=== PATIENT | female | born 1935 | race Caucasian/White ===

== ENCOUNTER 2018-10-18 11:14 | Emergency (ER) | payer MEDICARE, OTHER ==
[2018-10-18] MEDS ORDERED: SODIUM CHLORIDE 0.9% 1,000 ML IV STA ×2 (11:17)
--- NOTE | 2018-10-18 11:19 | ED ---
Neuro HPI - General Stated Complaint: stroke Time Seen by Provider: 10/18/18 11:17 Source: RN notes reviewed, old records reviewed - History of Present Illness Is the patient presenting with stroke symptoms?: Yes Initial Comments: This is an 83-year-old female to the ER for evaluation. This patient resents today for evaluation regards to neurological deficit, stroke like symptoms. Patient has history of COPD no other known medical history patient's poor strain secondary current clinical condition. History from EMS is that patient' s symptoms started between 9 and 9:30. Patient was seen by son did note the slurring of speech and weakness. Location: speech, dysarthria, right arm, right leg History of same: No Place: home Severity: moderate Quality: numb, tingling Improves With: none Worsens With: none On Anticoagulants: Yes Context: other (EKG) Associated Symptoms: denies other symptoms Treatments Prior to Arrival: none - Related Data Home Medications: Home Medications Medication Instructions Recorded Confirmed Albuterol Sulfate [Proventil Hfa] 2 puff INHALATION RT-Q6H PRN 10/18/18 10/18/18 Docusate [Colace] 100 mg PO HS PRN 10/18/18 10/18/18 Ipratropium-Albuterol Nebulize 3 ml INHALATION RT-Q6H PRN 10/18/18 10/18/18 [Duoneb 0.5 mg-3 mg/3 ml Soln] Loratadine [Claritin] 10 mg PO DAILY 10/18/18 10/18/18 Lovastatin [Mevacor] 40 mg PO HS 10/18/18 10/18/18 Montelukast [Singulair] 10 mg PO HS 10/18/18 10/18/18 Umeclidinium Brm/Vilanterol Tr 1 puff INHALATION RT-DAILY 10/18/18 10/18/18 [Anoro Ellipta 62.5-25 Mcg INH] clonazePAM [KlonoPIN] 0.5 mg PO HS 10/18/18 10/18/18 Allergies/Adverse Reactions: Allergies Allergy/AdvReac Type Severity Reaction Status Date / Time No Known Allergies Allergy Verified 10/18/18 12:17 Review of Systems ROS Statement: Those systems with pertinent positive or pertinent negative responses have been documented in the HPI. ROS Other: All systems not noted in ROS Statement are negative. General Exam - General Exam Comments Initial Comments: NIH of 6, patient does have slurred speech, right-sided deficit noted General appearance: alert, in no apparent distress Head exam: Present: atraumatic, normocephalic, normal inspection Eye exam: Present: normal appearance, PERRL, EOMI. Absent: scleral icterus, conjunctival injection, periorbital swelling ENT exam: Present: normal exam, mucous membranes moist Neck exam: Present: normal inspection. Absent: tenderness, meningismus, lymphadenopathy Respiratory exam: Present: normal lung sounds bilaterally. Absent: respiratory distress, wheezes, rales, rhonchi, stridor Cardiovascular Exam: Present: regular rate, normal rhythm, normal heart sounds. Absent: systolic murmur, diastolic murmur, rubs, gallop, clicks GI/Abdominal exam: Present: soft, normal bowel sounds. Absent: distended, tenderness, guarding, rebound, rigid Extremities exam: Present: normal inspection, full ROM, normal capillary refill. Absent: tenderness, pedal edema, joint swelling, calf tenderness Back exam: Present: normal inspection Neurological exam: Present: alert, oriented X3, CN II-XII intact Psychiatric exam: Present: normal affect, normal mood Skin exam: Present: warm, dry, intact, normal color. Absent: rash Stroke MDM - NIH Stroke Scale 1a. Level of Consciousness: (0) alert 1b. LOC Questions: (0) answers correctly 1c. LOC Commands: (1) performs 1 task correctly 2. Best Gaze: (0) normal 3. Visual: (0) no visual loss 4. Facial Palsy: (0) normal symmetrical movement 5a. Motor Arm Left: (0) no drift 5b. Motor Arm Right: (2) some gravity effort 6a. Motor Leg Left: (0) no drift 6b. Motor Leg Right: (2) some gravity effort 7. Limb Ataxia: (1) present 1 limb 8. Sensory: (0) normal 9. Best Language: (1) mild/moderate aphasia 10. Dysarthria: (0) normal 11. Extinction/Inattention: (0) no abnormality - Thrombolytic Inclusion/Exclusion Thrombolytic Inclusion Criteria: Ischemic Stroke Onset< 3h, NIH Stroke Scale Deficit (6) - Medical Decision Making 83 female the ER for evaluation, patient found to have acute CVA, patient given TPA here we'll be transferred for neuro ICU, possible neural intervention at [facility] - Radiology Data Radiology results: report reviewed (CT brain, CTA had not), image reviewed - EKG Data -: EKG Interpreted by Me (EKG shows NSR rate of 93 ND 136 QRS 110 QTc0) Course Vital Signs 10/18/18 10/18/18 10/18/18 11:30 11:45 12:00 Temperature 98.0 F Pulse Rate 92 89 91 Respiratory 20 20 18 Rate Blood Pressure 142/82 124/78 126/71 O2 Sat by Pulse 96 98 98 Oximetry 10/18/18 12:10 Temperature Pulse Rate 92 Respiratory 18 Rate Blood Pressure 128/82 O2 Sat by Pulse 98 Oximetry - Reevaluation(s) Reevaluation #1: 10/18/18 12:18 Medical record is reviewed Reevaluation #2: 10/18/18 12:18 spoke family at length regarding positive const a TPA, decision is made to go forward with giving TPA. Reevaluation #3: 10/18/18 12:19 EMS after bedside to take patient for transfer, patient is no change in neurological symptoms currently Critical Care Time Critical Care Time: Yes Total Critical Care Time: 31 Disposition Clinical Impression: Cerebrovascular accident Disposition: OTHER INSTITUTION NOT DEFINED Condition: Serious Is patient prescribed a controlled substance at d/c from ED?: No Referrals: Raad Pacheco MD [Primary Care Provider] - 1-2 days - Out of Hospital Transfer - Req. Specs Out of Hospital Transfer - Requested Specifics: Other Emergency Center ([facility])
[2018-10-18] MEDS ORDERED: tPA (Alteplase) PER PHARMACY 1 EACH MISC MISCELLANE PRN (11:36)
[2018-10-18 11:42] VITALS: TEMP 98
[2018-10-18] MEDS ORDERED: ALTEPLASE BOLUS 4 MG in EMPTY SYRINGE 1 SYR IV STA (11:43)
[2018-10-18] MEDS ORDERED: ALTEPLASE IV STA (11:43)
--- NOTE | 2018-10-18 11:44 | CT ---
EXAMINATION TYPE: CT brain wo con for TPA DATE OF EXAM: 10/18/2018 COMPARISON: None HISTORY: Right sided weakness CT DLP: 950.0 mGycm Automated exposure control for dose reduction was used. TECHNIQUE: CT scan of the head is performed without contrast. FINDINGS: There is no acute intracranial hemorrhage or midline shift identified. There is diffuse v entricular and sulcal prominence consistent with diffuse age-related cerebral atrophy. There is low- attenuation in the periventricular white matter consistent with chronic small vessel ischemic change. Atherosclerosis is seen of the intracranial vasculature. The globes are intact and the visualized si nuses are clear. Benign scleral calcifications are incidentally noted. IMPRESSION: No acute intracranial hemorrhage or midline shift. There is diffuse age-related cerebra l atrophy and chronic small vessel ischemic change noted.
[2018-10-18 12:03] VITALS: RESP 18
[2018-10-18 12:11] VITALS: BP 128/82; PULSE 92
[2018-10-18 12:25] LABS: Anisocytosis Slight; Basophils % (A) 0 %; Eosinophils # (A) 0.3 k/uL (0-0.7); Eosinophils % (A) 4 %; HCT 31.2 % (34.0-46.0); HGB 9.8 gm/dL (11.4-16.0); Hypochromasia Moderate; Lymphocytes # (A) 0.8 k/uL (1.0-4.8); Lymphocytes % (A) 10 %; MCH 26.6 pg (25.0-35.0); MCHC 31.3 g/dL (31.0-37.0); Mean Platelet Volume 7.1; Monocytes # (A) 0.4 k/uL (0-1.0); Monocytes % (A) 5 %; Neutrophils # (A) 6.2 k/uL (1.3-7.7); Neutrophils % (A) 79 %; Platelet Count 246 k/uL (150-450); RBC 3.67 m/uL (3.80-5.40); WBC 7.8 k/uL (3.8-10.6)
--- NOTE | 2018-10-18 12:27 | CT ---
EXAMINATION TYPE: CT angio head neck DATE OF EXAM: 10/18/2018 COMPARISON: CT brain same day HISTORY: 83-year-old female neurologic deficits, Right sided weakness TECHNIQUE: Contiguous axial scanning of the head and neck performed with IV Contrast, patient injecte d with 65 mL of Isovue 370. Coronal/sagittal MIP reconstructions performed. 3-D reconstructions gener ated by a dedicated independent workstation. CT DLP: 245.2 mGycm Automated exposure control for dose reduction was used. FINDINGS: Brain: The vertebral and basilar arteries are patent. Moderate prostatic calcifications within the bilateral carotid siphons without significant stenosis. There is a 1.0 to 1.2 cm long nonopacified segment of the left carotid terminus and M1 segment left M CA. The anterior cerebral arteries opacify with the A1 segment probably opacifying from retrograde fl ow via the anterior communicating artery. There is reconstitution of M2 and more distal left MCA bran ches No aneurysmal change seen. NECK: Mild to moderate atherosclerotic plaque and calcifications within the aortic arch. Arch vessel origin s are patent. Mild/moderate atherosclerotic narrowing at the origin of the bilateral vertebral arteries which are c odominant. Scattered mild atelectatic calcifications throughout the arch vessels. There is mild, just under 50% atherosclerotic narrowing at the right carotid bulb. Mild to moderate atelectatic changes at the left carotid bifurcation without significant atherosclero tic narrowing. IMPRESSION: 1. HEAD: A 1.0 TO 1.2 CM LONG NONOPACIFIED SEGMENT OF THE LEFT CAROTID TERMINUS AND M1 SEGMENT LEFT M CA SUGGESTS INTRA-ARTERIAL THROMBUS. THERE IS RECONSTITUTION OF M2 SEGMENT AND DISTAL LEFT MCA BRANCH ES AND RECONSTITUTION OF THE LEFT AICHA LIKELY FROM COLLATERAL FLOW THROUGH THE ACOM ARTERY. 2. NECK: MILD, LESS THAN 50% ATHEROSCLEROTIC NARROWING AT THE RIGHT GREATER THAN LEFT CAROTID BULBS. NO HEMODYNAMICALLY SIGNIFICANT STENOSIS SEEN IN THE NECK. Findings called to Dr. Bergman, in the ER at 12:20 PM.
[2018-10-18 12:43] LABS: INR 0.9 (<1.2); Partial Thromboplastin Time 22.5 sec (22.0-30.0); Prothrombin Time 10.1 sec (9.0-12.0)
[2018-10-18 12:44] LABS: Albumin 3.2 g/dL (3.5-5.0); Total Bilirubin 0.4 mg/dL (0.2-1.3); Total Protein 6.4 g/dL (6.3-8.2)
[2018-10-18 12:45] LABS: Creatine Kinase 29 U/L (30-135)
[2018-10-18 12:57] LABS: Troponin I <0.012 ng/mL (0.000-0.034)
== END 2018-10-18 12:10 | disposition other institution (70) ==
LOC: EC 11:14
DX: I63.9 Cerebral infarction, unspecified (principal); R29.706 NIHSS score 6; J44.9 Chronic obstructive pulmonary disease, unspecified; Z79.899 Other long term (current) drug therapy
CPT/HCPCS: 99291 ×2; 37195 ×2; 36415; 80053; 82550; 82553; 84484; 85025; 85610; 85730; 70496; 70450; 70498; J2997; Q9967